=== PATIENT | male | born 1950 | race Caucasian/White ===

== ENCOUNTER 2018-08-26 21:07 | Emergency (ER) | payer MEDICARE, OTHER ==
[~2018-08-26] VITALS: Ht 172.7 cm; Wt 73.9 kg
[2018-08-26 22:01] LABS: BASOPHILS # (AUTO) 0.1 /CMM (0.0-0.2); BASOPHILS % (AUTO) 0.7 % (0.0-2.0); EOSINOPHILS % (AUTO) 1.9 % (0.0-6.0); HEMATOCRIT 45 % (39-51); HEMOGLOBIN 15.3 g/dL (13.5-17.5); LYMPHOCYTES # (AUTO) 1.9 /CMM (0.8-4.8); LYMPHOCYTES % (AUTO) 17.2 % (20.0-44.0); MEAN CORPUSCULAR HGB CONC 34 g/dl (31.0-36.0); MEAN CORPUSCULAR VOLUME 92 fL (80-96); MONOCYTES # (AUTO) 0.9 /CMM (0.1-1.30); MONOCYTES % (AUTO) 7.9 % (2.0-12.0); NEUTROPHILS # (AUTO) 7.9 /CMM (1.8-8.9); NEUTROPHILS % (AUTO) 72.3 % (43.0-81.0); PLATELET COUNT (AUTO) 224 /CMM (150-450); RED BLOOD CELL COUNT(AUTO) 4.93 MIL/uL (4.5-6.0); WHITE BLOOD COUNT (AUTO) 10.9 K/uL (4.3-11.0)
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
--- NOTE | 2018-08-26 22:16 | NUR ---
TAKEN TO CT AT THIS TIME.
[2018-08-26 22:27] LABS: CALCIUM, SERUM 9.2 mg/dL (8.5-10.1); CARBON DIOXIDE 25 mmol/L (21-32); CHLORIDE 105 mmol/L (98-107); CREATININE 0.8 mg/dL (0.6-1.3); GLUCOSE 112 mg/dL (74-106); POTASSIUM 3.7 mmol/L (3.5-5.1); SODIUM SERUM 141 mmol/L (136-145); UREA NITROGEN, BLOOD 16 mg/dL (7-18)
[2018-08-26] MEDS ORDERED: IV NS 0.9% 1,000 ML BAG IV ONE (22:30)
--- NOTE | 2018-08-26 22:30 | NUR ---
ADDENDUM: Intravenous End Time Documentation: Normal saline 1 liter (IV-WO) : start time: 2230 PM; end time: 2330 : IV site: LAC # 18Port # 1
[2018-08-26] MEDS ORDERED: LIDOCAINE HCL/MPF 1% 30 ML VIAL IJ ONE (23:01)
--- NOTE | 2018-08-26 23:18 | NUR ---
WOUND CARE PROVIDED BY AT BEDSIDE.
--- NOTE | 2018-08-26 23:30 | NUR ---
FLUIDS INFUSED AT LAC #18 G WELL TOLERATED INFUSION COMPLETED
--- NOTE | 2018-08-26 23:58 | NUR ---
Patient discharged to home in stable condition, iv fluids given md Becerra cleared for dc. Written and verbal after care instructions given. Patient verbalizes understanding of instruction.
[2018-08-27] VITALS: BP 126/80
== END 2018-08-27 00:03 | disposition home or self-care (01) ==
LOC: ER 21:13
DX: S01.81XA Laceration without foreign body of other part of head, initial encounter (principal); R55 Syncope and collapse; W22.8XXA Striking against or struck by other objects, initial encounter; Y93.89 Activity, other specified; Y92.89 Other specified places as the place of occurrence of the external cause; Y99.8 Other external cause status
CPT/HCPCS: 36415; 70450-TC; 70486-TC; 80048-TC; 84484-TC; 85025-TC; 85730-TC; A6402; J3490; J7030